=== PATIENT | female | born 1935 | race African-American/Black ===

== ENCOUNTER 2017-06-29 13:45 | Observation (INO) | payer OTHER ==
[~2017-06-29] VITALS: Ht 160 cm; Wt 76.2 kg
--- NOTE | ~2017-06-29 | DS ---
Discharge Summary [facility] [id number] [place]. [address] NAME: LOW DUTTON V : 33 STATUS : DIS Jose G PAT#: [id number] AGE: 81 ADM/REG DATE : 06/29/17 MR#: [id number] REPORT SERV DATE: 07/03/17 DICTATED BY: JAIME HICKS DATE: 06/30/17 REPORT STATUS : Draft TRANSCRIBED BY: JOSE DANIEL DATE: 06/30/17 ADMISSION DATE: 06/29/2017 DISCHARGE DATE: 06/30/2017 DISCHARGE DIAGNOSES: 1. Hypertensive urgency. 2. Atypical chest pain. 3. Chronic kidney disease stage 3. 4. Insulin-dependent diabetes mellitus type 2. 5. Hyperlipidemia. 6. History of macular degeneration. 7. History of osteoarthritis. 8. History of cerebrovascular accident. IMAGING: CT brain without contrast, impression: Mild atrophy evidence of old deep white matter changes, evidence for infarction in the lateral aspect of the left caudate nucleus, all appear old. Myocardial perfusion stress test. DICTATION ENDS HERE CINDY/JOSE DANIEL Jaime Hicks MD / [id number] CC: Jaime Hicks MD
--- NOTE | ~2017-06-29 | HP ---
History And Physical [facility] [address] [place]. [address] NAME: LOW DAVIES V : 33 STATUS : ADM Jose G PAT#: [id number] AGE: 81 ADM/REG DATE : 06/29/17 MR#: [id number] REPORT SERV DATE: 06/29/17 DICTATED BY: MILI RIVERA DATE: 06/29/17 REPORT STATUS : Draft TRANSCRIBED BY: MODL DATE: 06/29/17 DATE OF ADMISSION: 06/29/2017 POINT OF ENTRY: [facility] Emergency Department. CHIEF COMPLAINT: Elevated blood pressure, dizziness, and chest pain. HISTORY OF PRESENT ILLNESS: Ms. Davies is an 81-year-old female with a history of uncontrolled hypertension, uncontrolled insulin-dependent mellitus type 2, chronic kidney stage 3, as well as a history of prior stroke in the past who presents to the emergency department today at the urging of her primary care physician for elevated blood pressures as well as dizziness and chest pain. The patient is a very difficult historian as she is very limited in talks and answers to my questioning. It appears that patient is intermittently compliant with her antihypertensive medications for unclear reasons. When asked specifically about the last three to four days, she does admit that earlier this week, she was not compliant with her blood pressure medications. She was seen by Dr. Jones today to review some medical tests, details of which are unknown to me. At that time, it was noted her blood pressures were elevated, again details unknown to me, and she was referred to the emergency department. The patient does state compliance with her long acting Levemir, states her blood sugars have consistently been in the 100-200 range. When queried specifically, she does report some intermittent troubles with chest pain. She does report episode of chest tightness earlier today but that has since resolved. She also reports intermittent troubles with dizziness again, none currently and none today but has in the past week. She denies any headaches, palpitations, shortness of breath, abdominal pain, nausea, vomiting, diarrhea, dysuria, melena, hematochezia, hemoptysis, or hematemesis. She does report some constipation as well as some occasional episodes of blurry vision. Initial evaluation in the emergency department notable for a blood pressure of 231/91. Labs noted for creatinine of 1.48 which appears to be stable. Troponin is negative. BNP was 98.3. Chest x-ray was clear as was her EKG. She was given 0.1 mg of clonidine with no improvement in her blood pressure and attempted to be admitted to the Hospitalist Service. Her blood pressure is still 230s over 90s. I then gave the chart back to the ER physician, who then ordered 10 mg IV hydralazine with improvement of blood pressure now into the 160 to 180 range systolic, subsequently admitted to the Hospitalist Service for further evaluation and management. History And Physical [address] [address] NAME: LOW DAVIES V : 33 STATUS : ADM Jose G PAT#: [id number] AGE: 81 ADM/REG DATE : 06/29/17 MR#: [id number] REPORT SERV DATE: 06/29/17 DICTATED BY: MILI RIVERA DATE: 06/29/17 REPORT STATUS : Draft TRANSCRIBED BY: MODCris DATE: 06/29/17 REVIEW OF SYSTEMS: Comprehensive system otherwise negative unless listed in history of present illness. PAST MEDICAL HISTORY: 1. Uncontrolled hypertension. 2. Hyperlipidemia. 3. Insulin-dependent diabetes mellitus type 2, recent hemoglobin A1c of 9.0. 4. Chronic kidney stage 3, baseline creatinine approximately 1.4 to 1.6. 5. History of macular degeneration. 6. History of constipation. 7. History of osteoarthritis. 8. History of stroke. 9. Medication noncompliance. SURGICAL HISTORY: Cataract surgery. ALLERGIES: NO KNOWN DRUG ALLERGIES. HOME MEDICATIONS: 1. Aspirin 81 mg daily. 2. Carvedilol 3.125 mg daily. 3. Levemir 30 units at bedtime. 4. Lisinopril 5 mg daily. 5. Naproxen 220 mg p.r.n. 6. Rosuvastatin 10 mg at bedtime. SOCIAL HISTORY: She denies any tobacco, alcohol, or illicits. FAMILY MEDICAL HISTORY: Mother with history of coronary artery disease. Father with cancer and stroke. Siblings with coronary artery disease and stroke. LABS AND IMAGIN. White count 5.4, hemoglobin 10.4, hematocrit is 32.4, platelet count 196. INR 1.1. 2. Sodium is 141, potassium 3.9, chloride 108, carbon dioxide 29, BUN 19, creatinine 1.48, glucose is 235, calcium is 8.6, magnesium is 2.2. 3. Troponin is less than 0.02. BNP is 98.3. 4. Urinalysis: Specific gravity is 1.010, moderate leukocyte esterase, with 10 white blood cells per high power field with only 3 epithelial cells. 5. Chest x-ray per my review shows no acute cardiopulmonary abnormality. 6. EKG per review shows normal sinus rhythm with no evidence of any acute ischemia or infarction, just some very mild lateral T-wave flattening. PHYSICAL EXAMINATION: VITAL SIGNS: Temperature is 97.8 degrees Fahrenheit, pulse is 65, respirations 16, saturating 98% on room air. Blood pressure is 231/91. On recheck, blood pressure is now 167/76. Pulse is in 70s. GENERAL: The patient is awake, alert, in no acute distress. Resting comfortably in bed. History And Physical [address] [address] NAME: LOW DAVIES V : 33 STATUS : ADM Jose G PAT#: [id number] AGE: 81 ADM/REG DATE : 06/29/17 MR#: [id number] REPORT SERV DATE: 06/29/17 DICTATED BY: MILI RIVERA DATE: 06/29/17 REPORT STATUS : Draft TRANSCRIBED BY: JOSE DANIEL DATE: 06/29/17 She is a well-developed, well-nourished, female. HEENT: Atraumatic and normocephalic. Moist mucous membranes. Pupils are equal, round, reactive to light and accommodation. Extraocular eye movements are intact. No scleral icterus. NECK: No jugular venous distention. No carotid bruits. CARDIAC: Regular rate and rhythm. No murmurs, rubs, or gallops. Normal S1, S2. LUNGS: Clear to auscultation bilaterally. No wheezes, rhonchi, or crackles. ABDOMEN: Soft, nontender, nondistended with good bowel sounds. No rebound, guarding, or rigidity. EXTREMITIES: Warm and well perfused. No cyanosis, clubbing, or edema. SKIN: Warm and dry. PSYCH: Affect appropriate. NEURO: Alert and oriented x3. Cranial nerves 2 through 12 grossly intact. Speech is normal. Gait not assessed. ASSESSMENT AND PLAN: Ms. Davies is an 81-year-old female with a history of uncontrolled hypertension who presents to the emergency department today with uncontrolled hypertension with associated chest pain and dizziness. PROBLEM LIST: 1. Hypertensive urgency. 2. Dizziness. 3. Chest pain. 4. Urinary tract infection. 5. Chronic kidney stage 3. 6. Constipation. 7. Insulin-dependent diabetes mellitus type 2. 8. Medication noncompliance. PLAN: 1. Hypertensive urgency. We will resume patient's home medications of lisinopril 5 mg but dose is increased for carvedilol as well as add on IV hydralazine p.r.n. for elevated blood pressures. 2. Dizziness. I suspect this is all likely either due to elevated blood pressures versus possibly orthostatic hypotension as she had a previous admission for that back in October, however, at that time, she was on diuretics and does not appear to be volume depleted this time. We will check orthostatic vital signs for completeness but checking a stat CT scan of the brain to rule out stroke or hemorrhage given her uncontrolled blood pressure. 3. Chest pain. Again EKG and cardiac enzymes are unremarkable. We will trend these out, and instructed for a stress test in the morning. 4. Urinary tract infection. The patient denies any dysuria, but is also very poor historian. We will empirically place the patient on some IV antibiotics. Follow up urine culture. 5. Constipation. We will provide patient with some stool softeners as well as laxatives as she happened to have episodes of severe constipation during her previous admission. 6. Chronic kidney stage 3, appears within her recent baseline. Continue to monitor. History And Physical [address] [address] NAME: LOW DAVIES V : 33 STATUS : ADM Jose G PAT#: [id number] AGE: 81 ADM/REG DATE : 06/29/17 MR#: [id number] REPORT SERV DATE: 06/29/17 DICTATED BY: MILI RIVERA DATE: 06/29/17 REPORT STATUS : Draft TRANSCRIBED BY: JOSE DANIEL DATE: 06/29/17 7. Insulin-dependent diabetes mellitus type 2, recent hemoglobin A1c of 9.0. Continue the patient's home long-acting insulin. We will place patient on sliding scale. 8. DVT prophylaxis. Heparin subcu. CODE STATUS: The patient wishes to be full code. JCB/JOSE DANIEL Mili Rivera MD / [id number] CC: MD Ashlyn Grewal Dr.
--- NOTE | ~2017-06-29 | DS ---
Discharge Summary [facility] [address] [place]. [address] NAME: LOW DUTTON V : 33 STATUS : DIS Jose G PAT#: [id number] AGE: 81 ADM/REG DATE : 06/29/17 MR#: [id number] REPORT SERV DATE: 07/01/17 DICTATED BY: JAIME HICKS DATE: 06/30/17 REPORT STATUS : Draft TRANSCRIBED BY: JOSE DANIEL DATE: 06/30/17 ADMISSION DATE: 06/29/2017 DISCHARGE DATE: 06/30/2017 DISCHARGE DIAGNOSES: 1. Atypical chest pain. 2. Hypertensive urgency. 3. Chronic kidney disease stage 3. 4. Diabetes mellitus type 2, insulin-treated. 5. Malignant hypertension. 6. History of osteoarthritis. IMAGIN. Chest x-ray, impression, borderline cardiomegaly, lungs clear. 2. Brain CT, mild atrophy, evidence for old deep white matter changes, evidence for infarction in the lateral aspect of the left caudate nucleus, all appears old. 3. Myocardial perfusion stress test, impression; imaging demonstrated no ischemia. Post adenosine infusion, left ventricular ejection fraction 52%. Overall low risk vasodilator stress test. HISTORY OF PRESENT ILLNESS: For detailed HPI, make reference to Dr. Stephen Bower's dictation on 06/29/2017. In brief, this is an 81-year-old female with medical history of uncontrolled hypertension, uncontrolled insulin-treated diabetes mellitus type 2, chronic kidney disease, who presented to the hospital with complaints of chest pain, dizziness, and was found to have significantly elevated blood pressure. Vital signs on presentation, temperature 97.8, blood pressure 231/91; on recheck after IV hydralazine, 167/76. Laboratory data, creatinine 1.48, troponin less than 0.02 x2, BNP 98. Chest x-ray shows no acute cardiopulmonary process. EKG shows normal sinus rhythm. No ST-segment elevation or depression. An assessment of hypertensive urgency and angina were made in the ER. The patient was admitted to the Hospitalist Service. Angina likely related to significantly elevated blood pressure. The patient's chest pain significantly improved after improvement in blood pressure. The patient underwent a cardiac stress test during this admission that was low risk for ischemia. The patient had no further episode of chest pain prior to discharge. The patient was advised to check blood pressure control and follow up with primary care physician. Hypertensive urgency. On presentation, the patient's blood pressure was in the 200s. Received IV hydralazine. The patient's blood pressure gradually trended down. Home dose of antihypertensive medications were recommenced. The patient's uncontrolled hypertension likely due to noncompliance. The patient was counseled extensively on medication compliance. The patient's daughter was at the bedside who also verbalized that the patient has not been compliant with medications as prescribed. Family agreed that they will continue to encourage the patient to be compliant with antihypertensive medications. Chronic kidney disease. The patient's creatinine remained within baseline creatinine of 1.4. No evidence of acute kidney injury noted during this admission. The patient was Discharge Summary [address] [address] NAME: LOW DUTTON V : 33 STATUS : DIS Jose G PAT#: [id number] AGE: 81 ADM/REG DATE : 06/29/17 MR#: [id number] REPORT SERV DATE: 07/01/17 DICTATED BY: JAIME HICKS DATE: 06/30/17 REPORT STATUS : Draft TRANSCRIBED BY: JOSE DANIEL DATE: 06/30/17 advised to continue to follow up with primary care physician. DISCHARGE DISPOSITION: Home. DISCHARGE ACTIVITIES: As tolerated. DISCHARGE FOLLOWUP: Follow up with primary care physician within one to two weeks of discharge. Continue to follow up with Cardiology as an outpatient. CINDY/JOSE DANIEL Jaime Hicks MD / [id number] CC: Jaime Hicks MD
[~2017-06-29 13:45] MED LIST: DEMA20 PO; HALF81 PO; LEVEMFLXPN SC; LIPITOR40 PO; MIRALAXPKT PO; NORCO1 TA2 PO; NORV10 PO; NOVOLOG SC; T PO
[2017-06-29 15:07] LABS: BASOPHILS 0.6 %; BASOPHILS ABSOLUTE 0.03 10/3/uL (0.0-0.16); EOSINOPHILS 4.3 %; EOSINOPHILS ABSOLUTE 0.23 10/3/uL (0.0-0.53); ER CBC TAT 0 Hrs 08 Mins; HEMATOCRIT 32.4 % (36.0-48.0); HEMOGLOBIN 10.4 g/dL (12.0-16.0); IMMATURE GRANULOCYTES 0.2 %; IMMATURE GRANULOCYTES ABSOLUTE 0.01 10/3/uL (0.0-0.11); LYMPHOCYTES 32.7 %; LYMPHOCYTES ABSOLUTE 1.75 10/3/uL (0.67-4.30); MEAN CORPUS HGB CONC 32.1 g/dL (32.0-36.0); MEAN CORPUSCULAR HEMOGLOB 29.1 pg (26.0-34.0); MEAN CORPUSCULAR VOLUME 90.5 fL (80-100); MEAN PLATELET VOLUME 11.6 fL (9.2-13.0); MONOCYTES 9.7 %; MONOCYTES ABSOLUTE 0.52 10/3/uL (0.21-1.20); NEUTROPHILS 52.5 %; NEUTROPHILS ABSOLUTE 2.81 10/3/uL (2.02-8.40); PLATELET COUNT 196 10/3/uL (150-400); RBC DISTRIBUTION WIDTH 13.6 % (12.0-16.0); RED CELL COUNT 3.58 10/6/uL (4.0-5.6); WHITE BLOOD CELLS 5.4 10/3/uL (4.5-10.5)
[2017-06-29 15:08] LABS: ASCORBIC ACID (UR NOT ORDER) NEG (NEG); BILIRUBIN, URINE NEGATIVE (NEG); ER URINALYSIS TAT 0 Hrs 09 Mins; KETONE, URINE NEGATIVE (NEG); LEUKOCYTE ESTERASE(NOT OR MOD (NEG); NITRITE (URINE) NEG (NEG); WBC (NOT ORDERED) (RFLEX) 10 (0-5)
[2017-06-29 15:08] LABS: MANUAL DIFF NO %
[2017-06-29 15:16] LABS: INTERNATIONAL NORMAL RATI 1.1 UNITS (-); PROTIME (NOT ORD) 14.4 SEC (12.0-14.5)
[2017-06-29 15:24] LABS: BUN (BLOOD UREA NITROGEN) 19 MG/DL (6-23); CALCIUM, SERUM 8.6 MG/DL (8.5-10.4); CHEST PAIN PROFILE TAT 0 Hrs 25 Mins; CHLORIDE, SERUM 108 MMOL/L (96-112); CO2 (CARBON DIOXIDE) 29 MMOL/L (24-34); CREATININE 1.48 MG/DL (0.55-1.02); GFR AFRICAN AMERICAN 38 ML/MIN (>=60); GFR NON AFRICAN AMERICAN 32 ML/MIN (>=60); POTASSIUM, SERUM 3.9 MMOL/L (3.5-5.3); SODIUM, SERUM 141 MMOL/L (135-148); TROPONIN I <0.02 NG/ML (<0.05)
[2017-06-29 15:27] LABS: GLUCOSE, SERUM 235 MG/DL (60-99)
[2017-06-29] MEDS ORDERED: PRIN5 PO (17:03)
[2017-06-29] MEDS ORDERED: ALEVE220 MG PO (17:03)
[2017-06-29] MEDS ORDERED: ASAB PO (17:03)
[2017-06-29] MEDS ORDERED: LEVEMFLXPN SC (17:04)
[2017-06-29] MEDS ORDERED: COREG3 PO (17:04)
[2017-06-29] MEDS ORDERED: CRESTOR10 PO (17:04)
[2017-06-29 22:47] LABS: CPK 127 U/L (0-200); FREE T4 0.95 NG/DL (0.76-1.46); TROPONIN I <0.02 NG/ML (<0.05)
[2017-06-29 22:48] LABS: CK-MB 1.8 NG/ML
[2017-06-30 03:59] LABS: BASOPHILS 0.7 %; BASOPHILS ABSOLUTE 0.04 10/3/uL (0.0-0.16); EOSINOPHILS ABSOLUTE 0.35 10/3/uL (0.0-0.53); HEMATOCRIT 32.7 % (36.0-48.0); HEMOGLOBIN 10.9 g/dL (12.0-16.0); IMMATURE GRANULOCYTES 0.2 %; IMMATURE GRANULOCYTES ABSOLUTE 0.01 10/3/uL (0.0-0.11); LYMPHOCYTES 35.2 %; LYMPHOCYTES ABSOLUTE 2.05 10/3/uL (0.67-4.30); MEAN CORPUS HGB CONC 33.3 g/dL (32.0-36.0); MEAN CORPUSCULAR HEMOGLOB 29.6 pg (26.0-34.0); MEAN CORPUSCULAR VOLUME 88.9 fL (80-100); MEAN PLATELET VOLUME 11.3 fL (9.2-13.0); MONOCYTES 12.9 %; MONOCYTES ABSOLUTE 0.75 10/3/uL (0.21-1.20); NEUTROPHILS ABSOLUTE 2.63 10/3/uL (2.02-8.40); PLATELET COUNT 191 10/3/uL (150-400); RBC DISTRIBUTION WIDTH 13.8 % (12.0-16.0); RED CELL COUNT 3.68 10/6/uL (4.0-5.6); WHITE BLOOD CELLS 5.8 10/3/uL (4.5-10.5)
[2017-06-30 04:01] LABS: MANUAL DIFF NO %
[2017-06-30 04:22] LABS: BUN (BLOOD UREA NITROGEN) 18 MG/DL (6-23); CALCIUM, SERUM 8.8 MG/DL (8.5-10.4); CHLORIDE, SERUM 111 MMOL/L (96-112); CO2 (CARBON DIOXIDE) 26 MMOL/L (24-34); CPK 126 U/L (0-200); CREATININE 1.13 MG/DL (0.55-1.02); GFR AFRICAN AMERICAN 52 ML/MIN (>=60); GFR NON AFRICAN AMERICAN 45 ML/MIN (>=60); POTASSIUM, SERUM 3.4 MMOL/L (3.5-5.3); SODIUM, SERUM 144 MMOL/L (135-148); TROPONIN I <0.02 NG/ML (<0.05)
[2017-06-30 04:24] LABS: CK-MB 1.8 NG/ML; GLUCOSE, SERUM 80 MG/DL (60-99)
== END 2017-06-30 20:30 | disposition home or self-care (01) ==
LOC: ER 13:45 → CDU1 17:53
PROVIDERS: Emergency Medicine; Internal Medicine
DX: I16.0 Hypertensive urgency (principal); R07.89 Other chest pain; I12.9 Hypertensive chronic kidney disease with stage 1 through stage 4 chronic kidney disease, or unspecified chronic kidney disease; E11.22 Type 2 diabetes mellitus with diabetic chronic kidney disease; N18.3 Chronic kidney disease, stage 3 (moderate); E78.5 Hyperlipidemia, unspecified; N39.0 Urinary tract infection, site not specified; M19.90 Unspecified osteoarthritis, unspecified site; Z86.73 Personal history of transient ischemic attack (TIA), and cerebral infarction without residual deficits; Z82.49 Family history of ischemic heart disease and other diseases of the circulatory system; Z82.3 Family history of stroke; Z80.9 Family history of malignant neoplasm, unspecified; Z91.14 Patient's other noncompliance with medication regimen; Z98.49 Cataract extraction status, unspecified eye; Z79.82 Long term (current) use of aspirin; Z79.4 Long term (current) use of insulin; Z79.899 Other long term (current) drug therapy
CPT/HCPCS: 70450; 71020; 78452; 80048; 81001; 82550; 82553; 82962; 83735; 83880; 84439; 84443; 84484; 85025; 85610; 85730; 87086; 93005; 93017; 96372; 96374; 96375; 96376; 97161-GP; 99285; A9270-GY; A9502; G0378; J0153; J0360